=== PATIENT | female | born 2000 | race Caucasian/White ===

== ENCOUNTER 2024-10-12 16:26 | Emergency (ER) | payer OTHER, SELFPAY ==
[2024-10-12 16:51] VITALS: BP 102/65; PULSE 93; RESP 18; TEMP 36.7; O2SAT 100
--- NOTE | 2024-10-12 16:57 | ED_ITS ---
HPI - URI/Sore Throat General Chief Complaint: Upper Respiratory Infection Stated Complaint: Cough Time Seen by Provider: 10/12/24 16:58 Source: patient Mode of arrival: ambulatory Limitations: no limitations History of Present Illness HPI Narrative: 23 y/o female with hx asthma presented for c/o cough for one week. States the cough started after having influenza last week. Says otc cough syrup is not helping. She is using her inhalers and has taken all of the benzonatate she was prescribed. Endorses feeling dizzy with coughing spells. Denies cp, wheezing, n/v/d/f/c. Related Data Home Medications ?Medication ?Instructions ?Recorded ?Confirmed ?Last Taken ?Type bupropion HCl 300 mg 24 hr tablet, 300 mg PO DAILY 10/12/24 10/12/24 Unknown H istory extended release fluoxetine 40 mg capsule 40 mg PO QPM 10/12/24 10/12/24 Unknown History hydroxyzine HCl 25 mg tablet 25 mg PO DAILY 10/12/24 10/12/24 Unknown History methylphenidate HCl 20 mg tablet 20 mg PO QPM 10/12/24 10/12/24 Unknown History montelukast 10 mg tablet 10 mg PO QPM 10/12/24 10/12/24 Unknown History norethindrone 1 mg-ethinyl 1 tablet PO DAILY 10/12/24 10/12/24 Unknown History estradiol 10 mcg (24)-iron 10 mcg(2) tablet (Lo Loestrin Fe) Allergies Allergy/AdvReac Type Severity Reaction Status Date / Time No Known Allergies Allergy Verified 10/12/24 16:49 Review of Systems Review of Systems: CONSTITUTIONAL: Denies body aches, fever, chills, or sweats. EYES: Denies visual changes, redness, or discharge. ENT: Denies rhinorrhea, congestion, sore throat, or otalgia. CARDIOVASCULAR: Denies chest pain, palpitations, or edema. RESPIRATORY: Reports cough, denies sob, wheezing. GASTROINTESTINAL: Denies abdominal pain, nausea, vomiting, or diarrhea. MUSCULOSKELETAL: Denies back pain, joint pain, or myalgia. NEUROLOGIC: Denies headache, numbness, tingling, or weakness. All systems reviewed & are unremarkable except as noted in HPI and below [facility] Comments At time of signature, I have reviewed and agree with nursing past medical, surgical, social and family history unless otherwise noted. Please see nursing chart for further information. There is no relevant family history pertinent to the presenting complaint Exam Narrative: GENERAL: Well-appearing, in no acute distress. EYES: EOMI. No redness or drainage. Conjunctivae normal. ENT: Mucous membranes pink and moist. No rhinorrhea. TMs normal bilaterally. Throat normal. Uvula midline. NECK: Normal AROM. Supple. CHEST: No respiratory distress. lungs clear to all hernández. Frequent harsh metal treater cough. HEART: Regular rate and rhythm. No murmur appreciated. SKIN: Warm, dry, no rash. Capillary refill normal. Normal skin turgor. NEURO: Alert and oriented x3. Gait steady. PSYCH: anxious Course Course Emergency Course: Patient is aware of diagnosis, understands and agrees to treatment plan. Anticipatory guidance given. Patient agrees to follow-up as directed and is a encarnacion of reasons to seek care at the emergency department. Portions of this record may have been created with voice recognition software Level of Care: Express Care Visit Vital Signs Vital signs: Vital Signs Temperature 98.0 F 10/12/24 16:51 Pulse Rate 93 10/12/24 16:51 Respiratory Rate 18 10/12/24 16:51 Blood Pressure 102/65 10/12/24 16:51 Pulse Oximetry 100 10/12/24 16:51 Oxygen Delivery Room Air 10/12/24 16:51 Temperature 98.0 F 10/12/24 16:51 Pulse Rate 93 10/12/24 16:51 Respiratory Rate 18 10/12/24 16:51 Blood Pressure 102/65 10/12/24 16:51 Pulse Oximetry 100 10/12/24 16:51 Oxygen Delivery Room Air 10/12/24 16:51 MDM - URI/Sore Throat MDM Narrative Medical decision making narrative: Discussed physical exam findings, and reviewed prescriptions. Patient says she has inhalers. Advised supportive measures and signs/symptoms to go to the ER. Pt is appropriate for outpt treatment and f/u. Differential Diagnosis Differential diagnosis: Likely upper respiratory infection, sinusitis, viral infection, bronchitis and other (Asthma exacerbation) Discharge Plan Discharge Clinical Impression: Bronchitis Patient Disposition: Home, Self-Care Condition: Stable Instructions: Antibiotic Form, Acute Bronchitis (ED) Additional Instructions: Acute bronchitis can be contagious because it is usually caused by infection with a virus or bacteria. It is usually for a few days but you can be contagious for up to one week. Avoid crowds until you do not have a fever and symptoms are improved Take medication as directed over the counter Cough syrup may cause drowsiness; avoid driving or take it at night time. Tylenol 1000mg every 8 hours as needed for pain Flonase spray and Zyrtec (or Claritin/She) rest, fluids, and increase humidity of the air at home. Use your albuterol inhaler as previously prescribed Follow up with your primary care provider as needed in 1 week Go to the ER for worsening symptoms or concerns Patient Language: Romanian Prescriptions: New benzonatate 200 mg capsule 200 mg PO TID PRN (Reason: cough) Qty: 20 0RF methylprednisolone [Medrol (Ignacio)] 4 mg tablets,dose pack See Rx Instructions .ROUTE .COMPLEX Qty: 21 0RF Rx Instructions: orally per package directions amoxicillin-pot clavulanate 875-125 mg tablet 1 tablet PO Q12H 7 Days Qty: 14 0RF No Action bupropion HCl 300 mg tablet extended release 24 hr 300 mg PO DAILY fluoxetine 40 mg capsule 40 mg PO QPM hydroxyzine HCl 25 mg tablet 25 mg PO DAILY methylphenidate HCl 20 mg tablet 20 mg PO QPM montelukast 10 mg tablet 10 mg PO QPM Lo Loestrin Fe 1 mg-10 mcg (24)/10 mcg (2) tablet 1 tablet PO DAILY Follow-up/Referrals: UNKNOWN,DOCTOR [Primary Care Provider] - Stand Alone Forms: Work/School Release IP Time of Disposition: 17:06
== END 2024-10-12 17:10 | disposition home or self-care (01) ==
PROVIDERS: Emergency Provider Nurse Practitioner Family
DX: J40 Bronchitis, not specified as acute or chronic (principal); J45.909 Unspecified asthma, uncomplicated; F41.9 Anxiety disorder, unspecified; F32.A Depression, unspecified
CPT/HCPCS: 99203; G0463

== ENCOUNTER 2024-10-28 12:36 | Emergency (ER) | payer OTHER, SELFPAY ==
[2024-10-28 12:47] VITALS: BP 138/86; PULSE 94; RESP 16; TEMP 36.3; O2SAT 100
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
== END 2024-10-28 13:25 | disposition home or self-care (01) ==
DX: S61.332A Puncture wound without foreign body of right middle finger with damage to nail, initial encounter (principal); Y04.1XXA Assault by human bite, initial encounter; Y99.0 Civilian activity done for income or pay
CPT/HCPCS: 99213; G0463

== ENCOUNTER 2024-10-28 14:09 | Emergency (ER) | payer OTHER, SELFPAY ==
[2024-10-28 14:50] VITALS: BP 151/89; PULSE 90; RESP 16; TEMP 36.7; O2SAT 100
--- OUTSIDE RECORDS SUMMARY | 2024-10-28 15:21 | XMS_ITS | Encounter Summary ---
Author Organization [facility] Address [address] [place] [address] Care Team Providers Care Right Of Way Manager Name Role Phone Unavailable Primary Care Provider Unavailabl e Encounter Details Date Type Department Care Team (Late st Contact Info) Description 01/10/[address] 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
--- OUTSIDE RECORDS SUMMARY | 2024-10-28 15:21 | XMS_ITS | Clinical Summary ---
Author Organization [facility] Address [address] [place] [address] Care Team Providers Care Virtualization Engineer Name Role Phone Alfonzo Segura MD Primary Care Provider Allergies Active Allergy Reactions Criticality Noted Date Comments Latex Rash Medium 01/31/2024 Medications mupirocin (BACTROBAN) 2 % ointmentIndications :Dog bite, initial encounter Apply topically 3 (three) times a day 22 g 11/17/19 24 Active hydrOXYzine (ATARAX) 25 mg tablet Take 1-2 tablets (25-50 mg total) by mouth nightly 12/20/19 24 Active methylphenidate HCl (RITALIN) 20 mg tablet Take 1 tablet (20 mg total) by mouth 2 (two) times a day 01/10/20 24 Active FLUoxetine (PROzac) 40 mg capsule Take 1 capsule (40 mg total) by mouth daily 12/19/19 24 Active montelukast (SINGULAIR) 10 mg tablet Take 1 tablet (10 mg total) by mouth nightly 01/27/20 24 Active fluticasone propionate (FLONASE) 50 mcg/actuation nasal sprayIndications:Ac [place] nasopharyngitis Administer 2 sprays into each nostril daily 1 each 05/24/20 24 Active buPROPion XL (WELLBUTRIN XL) 300 mg 24 hr tablet TAKE ONE TABLET BY MOUTH EVERY 24 HOURS 06/22/20 24 Active Lo Loestrin Fe 1 mg-10 mcg (24)/10 mcg (2) tablet per tablet 05/21/20 24 Active benzonatate (TESSALON) 100 mg capsuleIndications: Cough Take 1 capsule (100 mg total) by mouth 3 (three) times a day as needed for cough 21 capsule 08/02/20 24 Active oseltamivir (TAMIFLU) 75 mg capsuleIndications: Influenza A Take 1 capsule (75 mg total) by mouth 2 (two) times a day for 5 days 10 capsule 10/06/19 25 025 Active Problems No known active problems Encounters Date Type Department Care Team Description 10/05/2024 3:15 PM PROCESSOR SOLID PROPELLANT Office Visit [facility] Medical [facility] at [address] [phone] Evelyn Aguilar NP Influenza A (Primary Dx); Flu-like symptoms 08/02/2024 10:53 PM PROCESSOR SOLID PROPELLANT - 08/02/2024 11:59 PM PROCESSOR SOLID PROPELLANT [place] [address] Nasopharyngitis Discharge Disposition: Discharge to home or self care 08/02/2024 5:00 PM PROCESSOR SOLID PROPELLANT Office Visit [facility] Medical [facility] [address] [phone] Katerine Weston PA Nasopharyngitis (Primary Dx) from Last 3 Months Medical History Medical History Date Comments Personal history of other me ntal and behavioral disorders History of depression - (Add ed by TW Conv) Family History Medical History Relation Name Comments Leukemia Sister Family history of leukemia - (Added by TW Conv) Relation Name Status Comments Sister Social History Tobacco Use Types Packs/Day Years Used Date Smoking Tobacco: Never Assessed Comments Unknown Sex and Gender Information Value Date Recorded Sex Assigned at Not on file Legal Sex Female 12:21 PM PROCESSOR SOLID PROPELLANT Gender Identity Not on file Sexual Orientation Not on file Obstetrics History Last Filed Vital Signs Vital Sign Reading Time Taken Comments Blood Pressure 141/87 10/05/2024 3:23 PM PROCESSOR SOLID PROPELLANT Pulse 112 10/05/2024 3:23 PM PROCESSOR SOLID PROPELLANT Temperature 36.9 C (98.5 F) 10/05/2024 3:23 PM PROCESSOR SOLID PROPELLANT Respiratory Rate 20 10/05/2024 3:23 PM PROCESSOR SOLID PROPELLANT Oxygen Saturation 98% 10/05/2024 3:23 PM PROCESSOR SOLID PROPELLANT Inhaled Oxygen Concentration - - Weight 81.2 kg (179 lb) 10/05/2024 3:23 PM PROCESSOR SOLID PROPELLANT Height 172.7 cm (5' 8 ) 05/24/2024 4:24 PM CDT Body Mass Index 27.22 05/24/2024 4:24 PM CDT Plan of Treatment Health Maintenance Due Date Last Done Comments Cervical Cancer Screening 2000 Depression Screening 2000 Hepatitis C Screening 2000 Meningococcal B Vaccine (1 of 2 - Standard) 2016 Regular Well Visit/Exam 18-64 2018 Covid-19 Vaccine ( season) 2024 03/09/2022, 06/26/2021 Influenza Vaccine (#1) 2024 , 05/13/2020, 05/07/2019, Additional history exists DTaP/Tdap/Td Vaccine (8 - Td or Tdap) 03/09/2032 03/09/2022, 02/11/2012, 12/05/2004, Additional history exists Hepatitis B Screening Completed 06/26/2002 , 04/02/2001, 01/30/2001 HPV Vaccines Completed 02/11/2012, 04/19/2011 Varicella Vaccines Completed 02/27/2021, 01/25/2021 Pneumococcal vaccine <65 Aged Out No longer eligible based on patient's age to complete this topic Procedures Procedure Name Priority Date/Time Associated Diagnosis Comments POC INFLUENZA A/B, COVID-19 ANTIGEN Routine 10/05/2024 3:36 PM PROCESSOR SOLID PROPELLANT Flu-like symptoms POCT RAPID RSV (CPT 86240) Routine 08/02/2024 6:10 PM PROCESSOR SOLID PROPELLANT Nasopharyngitis POCT RAPID STREP Routine 08/02/2024 6:05 PM PROCESSOR SOLID PROPELLANT Nasopharyngitis POC INFLUENZA A/B, COVID-19 ANTIGEN Routine 08/02/2024 6:05 PM PROCESSOR SOLID PROPELLANT Nasopharyngitis THROAT CULTURE Routine 08/02/2024 6:00 PM PROCESSOR SOLID PROPELLANT Nasopharyngitis from Last 3 Months Results * (ABNORMAL) POC Influenza A/B, COVID-19 antigen (10/05/2024 3:36 PM PROCESSOR SOLID PROPELLANT) Influenza A Ag, POC Positive(A) Negative [facility] Influenza B Ag, POC Negative Negative [facility] COVID-19 Ag POC Presumptive Negative Presumptive Negative, Invalid [facility] Nasal 10/05/2024 3:36 PM PROCESSOR SOLID PROPELLANT Evelyn Aguilar NP POINT OF CARE TEST ORDERABLES Final Result Performing Organization Address [facility]/ZIP Co de Phone Number [facility] [address] [place] [address] * POCT rapid RSV (08/02/2024 6:10 PM PROCESSOR SOLID PROPELLANT) Rapid RSV, POC Negative Negative Lot Number 1 QC Control Line Acceptable Swab 08/02/2024 6:10 PM PROCESSOR SOLID PROPELLANT Katerine GUERRA POINT OF CARE TEST ORDER CHRISTINE Final Result * POC Influenza A/B, COVID-19 antigen (08/02/2024 6:05 PM PROCESSOR SOLID PROPELLANT) Influenza A Ag, POC Negative Negative [facility] Influenza B Ag, POC Negative Negative [facility] COVID-19 Ag POC Presumptive Negative Presumptive Negative, Invalid [facility] Nasal 08/02/2024 6:05 PM PROCESSOR SOLID PROPELLANT Katerine GUERRA POINT OF CARE TEST ORDER CHRISTINE Final Result Performing Organization Address City/[facility]/ZIP Co de Phone Number [facility] [address] [place] [address] * POCT rapid strep A (08/02/2024 6:05 PM PROCESSOR SOLID PROPELLANT) Rapid Strep A, POC Negative Negative Swab 08/02/2024 6:05 PM PROCESSOR SOLID PROPELLANT Katerine GUERRA POINT OF CARE TEST ORDER CHRISTINE Final Result * Throat culture Throat (08/02/2024 6:00 PM PROCESSOR SOLID PROPELLANT) Report Final Report: No growth of pathogens. Comment:Testing performed by : [facility], [address] [facility], [place]., [address] Throat 08/02/2024 6:00 PM PROCESSOR SOLID PROPELLANT 08/03/2024 6:18 AM PROCESSOR SOLID PROPELLANT Narrative MARIA LUISA [place] - 08/04/2024 7:15 AM PROCESSOR SOLID PROPELLANT Testing performed by [facility] ([phone]). Katerine GUERRA LAB MICROBIOLOGY - GENER AL ORDERABLES Final Result MARIA LUISA [id number] Department [place] [address] from Last 3 Months Insurance JASON GUZMAN ANTHEM [employer]ESS Care Teams Virtualization Engineer Relationship Specialty Start Date End Date Alfonzo Segura MD [address] [place], [place] [address] PCP - General 10/17/17
--- OUTSIDE RECORDS SUMMARY | 2024-10-28 15:21 | XMS_ITS | Clinical Summary ---
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 Gender Identity Not on file Sexual Orientation Not on file Plan of Treatment Health Maintenance Due Date Last Done Comments Cervical Cancer Screening Pa p Smear (Age 21 to 29) Every 3 Years 2000 Cervical Cancer Screening 2000 Annual Physical 11/27/2003 HPV Vaccines (1 - 3-dose series) 11/27/2015 Meningococcal B Vaccine (1 o f 2 - Standard) 2016 Hepatitis C 2018 DTaP, Tdap and Td Vaccines ( 1 - Tdap) 11/27/2019 Hepatitis B Vaccines (1 of 3 - 19+ 3-dose series) 11/27/2019 COVID-19 Vaccine (1 - 2023-2 5 season) 2024 Influenza Adult (#1) 2024 Meningococcal Vaccine Aged Out No zach deepthi eligible based on patient's age to complete this topic Pneumococcal Vaccine: Pediat rics (0 to 5 Years) and At-Risk Patients (6 to 64 Years) Aged Out No longer eligible b ased on patient's age to complete this topic RSV Immunizations Under 20 Months Aged Out No longer eligible based on patient's age to complete this topic Insurance [facility] C/O PROVIDER SERVICES CHARLEI LLOYD [id number]
--- OUTSIDE RECORDS SUMMARY | 2024-10-28 15:21 | XMS_ITS | Referral Summary ---
Author Organization [facility] Address [address] [place] [address] Care Team Providers Care Cow Trimmer Name Role Phone Alfonzo Segura MD Primary Care Provider Encounters Date Type Department Care Team Description 10/05/2024 3:15 PM TEST TECH Office Visit [facility] at [address] [phone] Evelyn Aguilar NP Influenza A (Primary Dx); Flu-like symptoms 08/02/2024 10:53 PM TEST TECH - 08/02/2024 11:59 PM TEST TECH Hospital Encounter [address] [address] Nasopharyngitis Discharge Disposition: Discharge to home or self care 08/02/2024 5:00 PM TEST TECH Office Visit [facility] at [address] [phone] Katerine Weston PA Nasopharyngitis (Primary Dx) from Last 3 Months Allergies Active Allergy Reactions Criticality Noted Date [...] (10 mg total) by mouth nightly 01/27/20 Active fluticasone propionate (FLONASE) 50 mcg/actuation nasal sprayIndications:Ac tetlin nasopharyngitis Administer 2 sprays into each nostril daily 1 each 05/24/20 Active buPROPion XL (WELLBUTRIN XL) 300 mg 24 hr tablet TAKE ONE TABLET BY MOUTH EVERY 24 HOURS 06/22/20 Active Lo Loestrin Fe 1 mg-10 mcg (24)/10 mcg (2) tablet per tablet 05/21/20 Active benzonatate (TESSALON) 100 mg capsuleIndications: Cough Take 1 capsule (100 mg total) by mouth 3 (three) times a day as needed for cough 21 capsule 08/02/20 24 Active oseltamivir (TAMIFLU) 75 mg capsuleIndications: Influenza A Take 1 capsule (75 mg total) by mouth 2 (two) times a day for 5 days 10 capsule 10/06/19 25 025 Active Problems No known active problems Social History Tobacco Use Types Packs/Day Years Used Date Smoking Tobacco: Never Assessed Comments Unknown Sex and Gender Information Value Date Recorded Sex Assigned at Not on file Legal Sex Female 12:21 PM TEST TECH Gender Identity Not on file Sexual Orientation Not on file Last Filed Vital Signs Vital Sign Reading Time Taken Comments Blood Pressure 141/87 10/05/2024 3:23 PM TEST TECH Pulse 112 10/05/2024 3:23 PM TEST TECH Temperature 36.9 C (98.5 F) 10/05/2024 3:23 PM TEST TECH Respiratory Rate 20 10/05/2024 3:23 PM TEST TECH Oxygen Saturation 98% 10/05/2024 3:23 PM TEST TECH Inhaled Oxygen Concentration - - Weight 81.2 kg (179 lb) 10/05/2024 3:23 PM TEST TECH Height 172.7 cm (5' 8 ) 05/24/2024 4:24 PM CDT Body Mass Index 27.22 05/24/2024 4:24 PM CDT Plan of Treatment Not on file Procedures Procedure Name Priority Date/Time Associated Diagnosis Comments POC INFLUENZA A/B, COVID-19 ANTIGEN Routine 10/05/2024 3:36 PM TEST TECH Flu-like symptoms POCT RAPID RSV (CPT 83436) Routine 08/02/2024 6:10 PM TEST TECH Nasopharyngitis POCT RAPID STREP Routine 08/02/2024 6:05 PM TEST TECH Nasopharyngitis POC INFLUENZA A/B, COVID-19 ANTIGEN Routine 08/02/2024 6:05 PM TEST TECH Nasopharyngitis THROAT CULTURE Routine 08/02/2024 6:00 PM TEST TECH Nasopharyngitis from Last 3 Months Results * (ABNORMAL) POC Influenza A/B, COVID-19 antigen (10/05/2024 3:36 PM TEST TECH) Influenza A Ag, POC Positive(A) Negative [facility] Influenza B Ag, POC Negative Negative [facility] COVID-19 Ag POC Presumptive Negative Presumptive Negative, Invalid [facility] Nasal 10/05/2024 3:36 PM TEST TECH Evelyn Aguilar NP POINT OF CARE TEST ORDERABLES Final Result Performing Organization Address City/State/[place] Co de Phone Number [facility] [address] [place] [address] * POCT rapid RSV (08/02/2024 6:10 PM TEST TECH) Rapid RSV, POC Negative Negative Lot Number 1 QC Control Line Acceptable Swab 08/02/2024 6:10 PM TEST TECH Katerine GUERRA POINT OF CARE TEST ORDER CHRISTINE Final Result * POC Influenza A/B, COVID-19 antigen (08/02/2024 6:05 PM TEST TECH) Influenza A Ag, POC Negative Negative [facility] Influenza B Ag, POC Negative Negative [facility] COVID-19 Ag POC Presumptive Negative Presumptive Negative, Invalid [facility] Nasal 08/02/2024 6:05 PM TEST TECH Katerine GUERRA POINT OF CARE TEST ORDER CHRISTINE Final Result Performing Organization Address City/[facility]/[place] Co de Phone Number [facility] [address] [place] [address] * POCT rapid strep A (08/02/2024 6:05 PM TEST TECH) Rapid Strep A, POC Negative Negative Swab 08/02/2024 6:05 PM TEST TECH Katerine GUERRA POINT OF CARE TEST ORDER CHRISTINE Final Result * Throat culture Throat (08/02/2024 6:00 PM TEST TECH) Report Final Report: No growth of pathogens. Comment:Testing performed by : [facility], [address] [place]., [address] Throat 08/02/2024 6:00 PM TEST TECH 08/03/2024 6:18 AM TEST TECH Narrative MARIA LUISA [place] - 08/04/2024 7:15 AM TEST TECH Testing performed by [facility] Microbiology Laboratory ([phone]). Katerine GUERRA LAB MICROBIOLOGY - GENER AL ORDERABLES Final Result Performing Organization Address City/[facility]/[place] Number [place] [address] [address] Department [place] [address] from Last [address] [place] [place] [address] PHILIP GUZMAN ANTHEM ACCESS Care Teams Cow Trimmer Relationship Specialty Start Date End Date Alfonzo Segura MD [address] [place], [place] [address] PCP - General 10/17/17
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
--- OUTSIDE RECORDS SUMMARY | 2024-10-28 17:29 | XMS_ITS | Encounter Summary ---
Author Organization [facility] Address [address] [place] [address] Care Team Providers Care Welder Tech Name Role Phone Unavailable Primary Care Provider Unavailabl e Encounter Details Date Type Department Care Team (Late st Contact Info) Description 01/10/[address] [facility]version [address] [place], [place] [id number] , Generic Conversion, Social History Tobacco Use Types Packs/Day Years Used Date Smoking Tobacco: Never Assessed Comments Unknown Sex and Gender Information Value Date Recorded Sex Assigned at Not on file Legal Sex Female 9:55 PM PHYSICAL SCIENTIST Gender Identity Not on file Sexual Orientation Not on file documented as of this encounter Plan of Treatment Not on file documented as of this encounter Visit Diagnoses Not on filedocumented in this encounter
--- OUTSIDE RECORDS SUMMARY | 2024-10-28 17:29 | XMS_ITS | Clinical Summary ---
Author Organization [facility] Address [address] [place] [address] Care Team Providers Care Ditch Worker Name Role Phone Alfonzo Segura MD Primary [...] fluticasone propionate (FLONASE) 50 mcg/actuation nasal sprayIndications:Ac tazlina nasopharyngitis Administer 2 sprays into each nostril [...] Department Care Team Description 10/05/2024 3:15 PM OPEN TENTER OPERATOR Office Visit [facility] Medical [facility] Care at [address] [phone] Evelyn Aguilar NP Influenza A (Primary Dx); Flu-like symptoms 08/02/2024 10:53 PM OPEN TENTER OPERATOR - 08/02/2024 11:59 PM OPEN TENTER [place]PER[place] [address] Nasopharyngitis Discharge Disposition: Discharge to home or self care 08/02/2024 5:00 PM OPEN TENTER OPERATOR Office Visit [facility] Medical [facility] Care at [address] [phone] Katerine Weston PA Nasopharyngitis (Primary Dx) from [...] on file Legal Sex Female 12:21 PM OPEN TENTER OPERATOR Gender Identity Not on file Sexual Orientation Not on file Obstetrics History Last Filed Vital Signs Vital Sign Reading Time Taken Comments Blood Pressure 141/87 10/05/2024 3:23 PM OPEN TENTER OPERATOR Pulse 112 10/05/2024 3:23 PM OPEN TENTER OPERATOR Temperature 36.9 C (98.5 F) 10/05/2024 3:23 PM OPEN TENTER OPERATOR Respiratory Rate 20 10/05/2024 3:23 PM OPEN TENTER OPERATOR Oxygen Saturation 98% 10/05/2024 3:23 PM OPEN TENTER OPERATOR Inhaled Oxygen Concentration - - Weight 81.2 kg (179 lb) 10/05/2024 3:23 PM OPEN TENTER OPERATOR Height 172.7 cm (5' 8 ) 05/24/2024 [...] A/B, COVID-19 ANTIGEN Routine 10/05/2024 3:36 PM OPEN TENTER OPERATOR Flu-like symptoms POCT RAPID RSV (CPT 88083) Routine 08/02/2024 6:10 PM OPEN TENTER OPERATOR Nasopharyngitis POCT RAPID STREP Routine 08/02/2024 6:05 PM OPEN TENTER OPERATOR Nasopharyngitis POC INFLUENZA A/B, COVID-19 ANTIGEN Routine 08/02/2024 6:05 PM OPEN TENTER OPERATOR Nasopharyngitis THROAT CULTURE Routine 08/02/2024 6:00 PM OPEN TENTER OPERATOR Nasopharyngitis from Last 3 Months Results * (ABNORMAL) POC Influenza A/B, COVID-19 antigen (10/05/2024 3:36 PM OPEN TENTER OPERATOR) Influenza A Ag, POC Positive(A) Negative [facility] Influenza B Ag, POC Negative Negative [facility] COVID-19 Ag POC Presumptive Negative Presumptive Negative, Invalid [facility] Nasal 10/05/2024 3:36 PM OPEN TENTER OPERATOR Evelyn Aguilar NP POINT OF CARE TEST ORDERABLES Final Result Performing Organization Address [facility]/ZIP Co de Phone Number [facility] [address] [place] [address] * POCT rapid RSV (08/02/2024 6:10 PM OPEN TENTER OPERATOR) Rapid RSV, POC Negative Negative Lot Number 1 QC Control Line Acceptable Swab 08/02/2024 6:10 PM OPEN TENTER OPERATOR Katerine GUERRA POINT OF CARE TEST ORDER CHRISTINE Final Result * POC Influenza A/B, COVID-19 antigen (08/02/2024 6:05 PM OPEN TENTER OPERATOR) Influenza A Ag, POC Negative Negative [facility] Influenza B Ag, POC Negative Negative [facility] COVID-19 Ag POC Presumptive Negative Presumptive Negative, Invalid [facility] Nasal 08/02/2024 6:05 PM OPEN TENTER OPERATOR Katerine GUERRA POINT OF CARE TEST ORDER CHRISTINE Final Result Performing Organization Address City/[facility]/ZIP Co de Phone Number [facility] [address] [place] [address] * POCT rapid strep A (08/02/2024 6:05 PM OPEN TENTER OPERATOR) Rapid Strep A, POC Negative Negative Swab 08/02/2024 6:05 PM OPEN TENTER OPERATOR Katerine GUERRA POINT OF CARE TEST ORDER CHRISTINE Final Result * Throat culture Throat (08/02/2024 6:00 PM OPEN TENTER OPERATOR) Report Final Report: No growth of pathogens. Comment:Testing performed by : [facility], [address] [facility], [place]., [address] Throat 08/02/2024 6:00 PM OPEN TENTER OPERATOR 08/03/2024 6:18 AM OPEN TENTER OPERATOR Narrative MARIA LUISA [place] - 08/04/2024 7:15 AM OPEN TENTER OPERATOR Testing performed by [facility] Microbiology Laboratory ([phone]). Katerine GUERRA LAB MICROBIOLOGY - GENER AL ORDERABLES Final Result MARIA LUISA [id number] [address] Department [place] [address] from Last 3 Months Insurance JASON GUZMAN ANTHEM ACCESS Care Teams Ditch Worker Relationship Specialty Start Date End Date Alfonzo Segura MD [address] [place], [place] [address] PCP - General 10/17/17
--- OUTSIDE RECORDS SUMMARY | 2024-10-28 17:29 | XMS_ITS | Clinical Summary ---
Author Organization [facility] Address [address] [place] [address] Care Team Providers Care Kettle Girl Name Role Phone Unavailable Primary Care Provider Unavailabl e Social History Tobacco Use Types Packs/Day Years Used Date Smoking Tobacco: Never Assessed Comments Unknown Sex and Gender Information Value Date Recorded Sex Assigned at Not on file Legal Sex Female 9:55 PM LICENSED PROSTHETIST/ORTHOTIST Gender Identity Not on file Sexual Orientation [...] patient's age to complete this topic Insurance [facility] C/O PROVIDER SERVICES CHARLIE LLOYD [id number]
--- OUTSIDE RECORDS SUMMARY | 2024-10-28 17:29 | XMS_ITS | Referral Summary ---
Author Organization [facility] Address [address] [place] [address] Care Team Providers Care Belt Loop Maker Name Role Phone Alfonzo Segura MD Primary Care Provider Encounters Date Type Department Care Team Description 10/05/2024 3:15 PM MACHINE ASSEMBLER FOR PULLER OVER Office Visit [facility] at [address] [phone] Evelyn Aguilar NP Influenza A (Primary Dx); Flu-like symptoms 08/02/2024 10:53 PM MACHINE ASSEMBLER FOR PULLER OVER - 08/02/2024 11:59 PM MACHINE ASSEMBLER FOR PULLER OVER Hospital Encounter [address] [address] Nasopharyngitis Discharge Disposition: Discharge to home or self care 08/02/2024 5:00 PM MACHINE ASSEMBLER FOR PULLER OVER Office Visit [facility] at [address] [phone] Katerine Weston PA Nasopharyngitis (Primary Dx) from [...] fluticasone propionate (FLONASE) 50 mcg/actuation nasal sprayIndications:Ac te-moak nasopharyngitis Administer 2 sprays into each nostril [...] on file Legal Sex Female 12:21 PM MACHINE ASSEMBLER FOR PULLER OVER Gender Identity Not on file Sexual Orientation Not on file Last Filed Vital Signs Vital Sign Reading Time Taken Comments Blood Pressure 141/87 10/05/2024 3:23 PM MACHINE ASSEMBLER FOR PULLER OVER Pulse 112 10/05/2024 3:23 PM MACHINE ASSEMBLER FOR PULLER OVER Temperature 36.9 C (98.5 F) 10/05/2024 3:23 PM MACHINE ASSEMBLER FOR PULLER OVER Respiratory Rate 20 10/05/2024 3:23 PM MACHINE ASSEMBLER FOR PULLER OVER Oxygen Saturation 98% 10/05/2024 3:23 PM MACHINE ASSEMBLER FOR PULLER OVER Inhaled Oxygen Concentration - - Weight 81.2 kg (179 lb) 10/05/2024 3:23 PM MACHINE ASSEMBLER FOR PULLER OVER Height 172.7 cm (5' 8 ) 05/24/2024 4:24 PM CDT Body Mass Index 27.22 05/24/2024 4:24 PM CDT Plan of Treatment Not on file Procedures Procedure Name Priority Date/Time Associated Diagnosis Comments POC INFLUENZA A/B, COVID-19 ANTIGEN Routine 10/05/2024 3:36 PM MACHINE ASSEMBLER FOR PULLER OVER Flu-like symptoms POCT RAPID RSV (CPT 13452) Routine 08/02/2024 6:10 PM MACHINE ASSEMBLER FOR PULLER OVER Nasopharyngitis POCT RAPID STREP Routine 08/02/2024 6:05 PM MACHINE ASSEMBLER FOR PULLER OVER Nasopharyngitis POC INFLUENZA A/B, COVID-19 ANTIGEN Routine 08/02/2024 6:05 PM MACHINE ASSEMBLER FOR PULLER OVER Nasopharyngitis THROAT CULTURE Routine 08/02/2024 6:00 PM MACHINE ASSEMBLER FOR PULLER OVER Nasopharyngitis from Last 3 Months Results * (ABNORMAL) POC Influenza A/B, COVID-19 antigen (10/05/2024 3:36 PM MACHINE ASSEMBLER FOR PULLER OVER) Influenza A Ag, POC Positive(A) Negative [facility] Influenza B Ag, POC Negative Negative [facility] COVID-19 Ag POC Presumptive Negative Presumptive Negative, Invalid [facility] Nasal 10/05/2024 3:36 PM MACHINE ASSEMBLER FOR PULLER OVER Evelyn Aguilar NP POINT OF CARE TEST ORDERABLES Final Result Performing Organization Address City/State/[facility] Co de Phone Number [facility] [address] [place] [address] * POCT rapid RSV (08/02/2024 6:10 PM MACHINE ASSEMBLER FOR PULLER OVER) Rapid RSV, POC Negative Negative Lot Number 1 QC Control Line Acceptable Swab 08/02/2024 6:10 PM MACHINE ASSEMBLER FOR PULLER OVER Katerine GUERRA POINT OF CARE TEST ORDER CHRISTINE Final Result * POC Influenza A/B, COVID-19 antigen (08/02/2024 6:05 PM MACHINE ASSEMBLER FOR PULLER OVER) Influenza A Ag, POC Negative Negative [facility] Influenza B Ag, POC Negative Negative [facility] ED[facility] COVID-19 Ag POC Presumptive Negative Presumptive Negative, Invalid [facility] Nasal 08/02/2024 6:05 PM MACHINE ASSEMBLER FOR PULLER OVER Katerine GUERRA POINT OF CARE TEST ORDER CHRISTINE Final Result Performing Organization Address City/[facility] Co de Phone Number [facility] [address] [place] [address] * POCT rapid strep A (08/02/2024 6:05 PM MACHINE ASSEMBLER FOR PULLER OVER) Rapid Strep A, POC Negative Negative Swab 08/02/2024 6:05 PM MACHINE ASSEMBLER FOR PULLER OVER Katerine GUERRA POINT OF CARE TEST ORDER CHRISTINE Final Result * Throat culture Throat (08/02/2024 6:00 PM MACHINE ASSEMBLER FOR PULLER OVER) Report Final Report: No growth of pathogens. Comment:Testing performed by : [facility], [address] [place]., [address] Throat 08/02/2024 6:00 PM MACHINE ASSEMBLER FOR PULLER OVER 08/03/2024 6:18 AM MACHINE ASSEMBLER FOR PULLER OVER Narrative MARIA LUISA [place] - 08/04/2024 7:15 AM MACHINE ASSEMBLER FOR PULLER OVER Testing performed by [facility] Microbiology Laboratory ([phone]). Katerine GUERRA LAB MICROBIOLOGY - GENER AL ORDERABLES Final Result Performing Organization Address City/[facility]/[place] Number [place] [address] [address] Department [place] [address] from Last [address] [place] [address] [place] [address] PHILIP GUZMAN ANTHEM ACCESS Care Teams Belt Loop Maker Relationship Specialty Start Date End Date Alfonzo Segura MD [address] [place], [place] [address] PCP - General 10/17/17
== END 2024-10-28 18:04 | disposition home or self-care (01) ==
LOC: ANHED 17:21
PROVIDERS: Emergency Provider Family Medicine
DX: S61.252A Open bite of right middle finger without damage to nail, initial encounter (principal); W50.3XXA Accidental bite by another person, initial encounter; Z79.899 Other long term (current) drug therapy
CPT/HCPCS: 99282

== ENCOUNTER 2025-04-14 19:00 | Emergency (ER) | payer OTHER, SELFPAY ==
--- NOTE | 2025-04-14 19:09 | ED.URI ---
HPI - URI/Sore Throat General Chief Complaint: Upper Respiratory Infection Stated Complaint: SINUS CONGESTION Time Seen by Provider: 04/14/25 19:10 Source: patient and RN notes reviewed Mode of arrival: ambulatory Limitations: no limitations History of Present Illness HPI Narrative: 24-year-old female history of asthma presents concern for 2 week history of sinus congestion, drainage. Reports she has been taking and his knee without relief. Reports she is coughing but not very much, she is not having to use her albuterol inhaler. MD elicited complaint: nasal congestion Related Data Home Medications ?Medication ?Instructions ?Recorded ?Confirmed ?Last Taken ?Type hydroxyzine HCl 25 mg tablet 25 mg PO DAILY 10/12/24 10/12/24 Unknown History methylphenidate HCl 20 mg tablet 20 mg PO QPM 10/12/24 10/12/24 Unknown History montelukast 10 mg tablet 10 mg PO QPM 10/12/24 10/12/24 Unknown History norethindrone 1 mg-ethinyl 1 tablet PO DAILY 10/12/24 10/12/24 Unknown History estradiol 10 mcg (24)-iron 10 mcg(2) tablet (Lo Loestrin Fe) aripiprazole 2 mg tablet mg 04/14/25 Unknown History bupropion HCl 150 mg 24 hr tablet, mg PO 04/14/25 Unknown History extended release Allergies Allergy/AdvReac Type Severity Reaction Status Date / Time No Known Allergies Allergy Verified 04/14/25 19:19 Review of Systems Review of Systems: CONSTITUTIONAL: Denies malaise, chills, sweats, or fever. EYES: Denies visual changes, redness, or discharge. ENT: Reports rhinorrhea, congestion, sinus pain, otalgia CARDIOVASCULAR: Denies chest pain, palpitations, or edema. RESPIRATORY: Reports occasional cough. Denies dyspnea. GASTROINTESTINAL: Denies abdominal pain, nausea, vomiting, diarrhea SKIN: Denies rash or itching. MUSCULOSKELETAL: Denies myalgia. NEUROLOGIC: Denies headache. All systems reviewed & are unremarkable except as noted in HPI and below PMFSH Comments At time of signature, agree with nursing past medical, surgical, social and family history. There is no relevant family history pertinent to the presenting complaint Exam Narrative: GENERAL: Well-appearing, well-nourished, and in no acute distress. HEAD: Normocephalic EYES: PERRLA, conjunctivae clear ENT: Nares clear, turbinates edematous and erythematous. Mucous membranes moist. TM slightly erythematous with dull light reflex bilaterally; no tragal tenderness. Oropharynx not erythematous without lesions. Tonsils not enlarged and without exudate, no drooling, no hoarseness, no trismus, uvula midline. NECK: Supple. No lymphadenopathy CHEST: Clear to auscultation, breath sounds equal. No wheezing, rhonchi, rales, or stridor. No respiratory distress, speaks in full sentences. HEART: Regular rate and rhythm. No murmur heard. SKIN: Warm, dry, no rash. NEURO: Alert and oriented x3. PSYCH: Normal mood and affect Course Course Emergency Course: Patient is aware of diagnosis, understands and agrees to treatment plan. Anticipatory guidance given. Patient agrees to follow-up as directed and is aware of reasons to seek care at the emergency department. Portions of this record may have been created with voice recognition software Level of Care: Express Care Visit Vital Signs Vital signs: Vital Signs Temperature 97.6 F 04/14/25 19:10 Pulse Rate 80 04/14/25 19:10 Respiratory Rate 16 04/14/25 19:10 Blood Pressure 98/64 L 04/14/25 19:10 Pulse Oximetry 100 04/14/25 19:10 Temperature 97.6 F 04/14/25 19:10 Pulse Rate 80 04/14/25 19:10 Respiratory Rate 16 04/14/25 19:10 Blood Pressure 98/64 L 04/14/25 19:10 Pulse Oximetry 100 04/14/25 19:10 Reviewed. MDM - URI/Sore Throat MDM Narrative Medical decision making narrative: Differential diagnosis considered: Mackay virus, strep pharyngitis, allergic rhinitis, upper respiratory tract infection, sinusitis, rhinosinusitis, nasopharyngitis. viral pharyngitis, otitis media, otitis externa, pneumonia, bronchitis, viral cough syndrome, viral syndrome, and influenza. Exam findings show no acute concerns or changes; patient is non-toxic appearing and is in no distress. Patient is appropriate for outpatient treatment and follow-up. Lab Data Attestation: I reviewed the patient's lab results. Critical Care Time Critical Care Time Critical Care Time: No Discharge Plan Discharge Clinical Impression: Sinusitis Patient Disposition: Home Condition: Stable Instructions: Antibiotic Form, Sinusitis (ED) Additional Instructions: Take medication as prescribed Nonprescription pain medications, such as acetaminophen (eg, Tylenol) or ibuprofen (eg, Motrin, Advil), are recommended for pain. Flushing the nose and sinuses with a saline solution several times per day has been proven to decrease pain associated with congestion and shorten the duration of symptoms. Nasal steroids (such as Flonase, 2 sprays in each nostril daily) can help to reduce swelling inside the nose, usually within two to three days. These drugs have few side effects and relieve symptoms in most people. Medications to thin secretions (such as guaifenesin) may help to clear mucus. Please follow-up with your primary care doctor in the next 1-2 days. If you cannot follow-up with your primary care doctor please go to the ED for any urgent issues. If you have any worsening of symptoms or any other concerns please go to the ED immediately. Patient Language: Latvian Prescriptions: New methylprednisolone [Medrol (Ignacio)] 4 mg tablets,dose pack See Rx Instructions .ROUTE .COMPLEX Qty: 21 0RF Rx Instructions: orally per package directions amoxicillin-pot clavulanate 875-125 mg tablet 1 tablet PO Q12H 10 Days Qty: 20 0RF No Action hydroxyzine HCl 25 mg tablet 25 mg PO DAILY methylphenidate HCl 20 mg tablet 20 mg PO QPM montelukast 10 mg tablet 10 mg PO QPM Lo Loestrin Fe 1 mg-10 mcg (24)/10 mcg (2) tablet 1 tablet PO DAILY bupropion HCl 150 mg tablet extended release 24 hr PO aripiprazole 2 mg tablet Follow-up/Referrals: Colton,Alfonzo [Other] Stand Alone Forms: Work/School Release IP Time of Disposition: 19:34
[2025-04-14 19:10] VITALS: BP 98/64; PULSE 80; RESP 16; TEMP 36.4; O2SAT 100
== END 2025-04-14 19:37 | disposition home or self-care (01) ==
PROVIDERS: Emergency Provider Nurse Practitioner
DX: J32.9 Chronic sinusitis, unspecified (principal); J45.909 Unspecified asthma, uncomplicated; F90.9 Attention-deficit hyperactivity disorder, unspecified type; F41.9 Anxiety disorder, unspecified; F32.A Depression, unspecified
CPT/HCPCS: 99213; G0463